=== PATIENT | male | born 1985 | race Caucasian/White ===

== ENCOUNTER 2025-01-10 18:09 | Emergency (ER) | payer SELFPAY ==
[~2025-01-10] VITALS: Ht 177.8 cm; Wt 77.0 kg
[2025-01-10 18:12] VITALS: BP 110/71; PULSE 96; RESP 16; TEMP 36.9; O2SAT 99
[2025-01-10] MEDS: KETOROLAC 15MG/ML VIAL IM ONE (18:31)
[2025-01-10] MEDS ORDERED: BO1 TP (18:45)
[2025-01-10] MEDS ORDERED: IBUP-2028 MT (18:45)
[2025-01-10] MEDS: BACITRACIN ZINC OINT UDPKT TOP ONE (19:12)
[2025-01-10] MEDS: TETANUS, DIPHTHERIA, PERTUSSIS VAC/PF 0.5ML (>10YR OLD) IM ONE (19:12)
[2025-01-10] MEDS: LIDOCAINE HCL 1% 20ML VIAL INFIL ONE (19:13)
== END 2025-01-10 19:17 | disposition home or self-care (01) ==
LOC: ER 18:09
DX: S61.216A Laceration without foreign body of right little finger without damage to nail, initial encounter (principal); Z98.890 Other specified postprocedural states; Z79.899 Other long term (current) drug therapy; W26.8XXA Contact with other sharp object(s), not elsewhere classified, initial encounter; Y93.89 Activity, other specified; Y92.89 Other specified places as the place of occurrence of the external cause; Y99.8 Other external cause status
CPT/HCPCS: 99284; 73140; 90715; 12002; 90471; 96372; J1885; J2003